=== PATIENT | male | born 1955 | race Native Hawaiian/Other Pacific Islander ===

== ENCOUNTER 2018-11-22 14:22 | Emergency (ER) | payer SELFPAY ==
[2018-11-22] MEDS ORDERED: Pepcid 20 MG VIAL IV ONE ×2 (14:34→15:28)
[2018-11-22] MEDS ORDERED: DUONEB 0.5-3 MG/3 ml Neb IH ONE ×2 (14:34→15:06)
[2018-11-22] MEDS ORDERED: solu-MEDROL 125 MG IV ONE (14:34)
[2018-11-22] MEDS ORDERED: Sodium Chloride 0.9% 1000 ML 1,000 ML IV STA (14:34)
[2018-11-22] MEDS ORDERED: BENADRYL 50 MG/ML IV ONE (14:34)
[2018-11-22 14:54] LABS: BASOPHIL % 0.1 % (0.0-0.4); Basophil (Absolute #) 0.01 (0-0.4); Eosinophil % 0.7 % (0.00-5.0); Eosinophil (Absolute #) 0.11 (0-0.5); Granulocyte Absolute (ANC) 11.88 (1.4-6.9); Granulocytes % 80.2 % (36.0-66.0); Hematocrit 46.6 % (42-50); Hemoglobin 15.4 gm/dl (12.5-18.0); Lymphocyte (Absolute #) 2.04 (1.0-4.6); Lymphocytes % 13.8 % (24.0-44.0); Mean Cell Volume 97.9 fl (78-100); Mean Corpuscular Hemoglobin 32.4 pg (26-32); Mean Platelet Volume 10.4 fl (6-9.5); Monocyte (Absolute #) 0.77 (0.0-1.3); Monocytes % 5.2 % (0.0-12.0); Platelet Count 258 K/mm3 (150-450); Red Blood Count 4.76 M/mm3 (4.1-5.6); Red Cell Distribution Width 13.7 % (11.5-14.0); White Blood Count 14.8 K/mm3 (4.0-10.5)
[2018-11-22] MEDS ORDERED: solu-MEDROL 125 MG ONE (15:28)
[2018-11-22] MEDS ORDERED: Sodium Chloride 0.9% 1000 ML 1,000 ML ONE (15:28)
[2018-11-22] MEDS ORDERED: BENADRYL 50 MG/ML ONE (15:28)
[2018-11-22 15:40] LABS: ALBUMIN 4.6 g/dL (3.5-5.0); ANION GAP 18.8 MEQ/L (5-15); BILIRUBIN,TOTAL 0.6 mg/dL (0.2-1.3); Calcium 9.7 mg/dL (8.4-10.2); Creatinine 1 1.4 mg/dL (0.66-1.25); Potassium 4.2 mmol/L (3.5-5.1); Total Protein 7.9 g/dL (6.3-8.2)
[2018-11-22] MEDS ORDERED: Zithromax 500 MG/ 250 ML NaCl Premix 500 MG/250 ML IVPB IV ONE ×2 (16:09→16:21)
[2018-11-22] MEDS ORDERED: ROCEPHIN 1 Gm-D5w 50 ml Bag** 1 G/50 ML IVPB IV STA (16:10)
[2018-11-22] MEDS ORDERED: ROCEPHIN 1 Gm-D5w 50 ml Bag** 1 G/50 ML IVPB IV ONE (16:21)
[2018-11-22 16:31] VITALS: O2SAT 95
--- NOTE | 2018-11-22 18:52 | ERPHSYRPT ---
- History of Present Illness Source: patient Exam Limitations: no limitations Patient Subjective Stated Complaint: Went to [employer] and used the restroom and used the soap, approximately 20 minutes later his vision got blurred, having difficulty swallowing, and itching Triage Nursing Assessment: Lungs clear, hypotensive, pulses normal, denies difficulty breathing, skin dry with red raised bumps in scattered areas, doesn' t appear to be in any distress Timing/Duration: today Cough Quality/Degree: moderate, dry cough Possible Cause: occasional episodes Modifying Factors: Improves With: nothing Associated Symptoms: cough, dizziness, lightheadedness, shortness of breath <DOTTIE LASSITER - Last Filed: 11/22/18 18:45> <ISAK RICE - Last Filed: 11/22/18 19:48> - History of Present Illness Time Seen by Provider: 11/22/18 19:08 Physician History: Pt is a 63 y/o male that presented to the ER with complains of rash all over, and itch. Pt states, had a h/o allergic reaction, and he feels like he can't breath. Pt denies chest pain or palpitations. No N/V/D or abdominal pain. No F/C/S. No dysuria, frequency and urgency. (DOTTIE LASSITER) Allergies/Adverse Reactions: No Known Drug Allergies Allergy (Verified 11/22/18 14:39) Home Medications: Allopurinol 300 mg [Zyloprim 300 mg] 300 mg PO DAILY 11/22/18 [History] Gemfibrozil 600 mg PO DAILY 11/22/18 [History] Lisinopril/Hydrochlorothiazide [Lisinopril-Hctz 20-12.5 mg Tab] 1 each PO DAILY 11/22/18 [History] Metformin HCl 500 mg [Glucophage 500 MG] 500 mg PO BIDWM 11/22/18 [History ] glipiZIDE [Glipizide] 10 mg PO BID 11/22/18 [History] - Review of Systems Constitutional: Weakness Eyes: No Symptoms Ears, Nose, & Throat: No Symptoms, Throat Swelling Respiratory: Cough Cardiac: No Chest Pain, No Edema, No Syncope Abdominal/Gastrointestinal: No Abdominal Pain, No Nausea, No Vomiting, No Diarrhea Genitourinary Symptoms: No Dysuria Musculoskeletal: No Back Pain, No Neck Pain Skin: Rash (diffuse) Neurological: No Dizziness, No Focal Weakness, No Sensory Changes <DOTTIE LASSITER - Last Filed: 11/22/18 18:45> - Past Medical History Cardiac History: High Cholesterol, Hypertension Endocrine Medical History: Diabetes Type II Male Reproductive Disorders: Testicular Cancer Other Medical History: broken collar bone - Past Surgical History Past Surgical History: Yes Gastrointestinal: Cholecystectomy Other Surgical History: diaphram - Social History Smoking Status: Never smoker Drug Use: none Patient Lives Alone: No <DOTTIE LASSITER - Last Filed: 11/22/18 18:45> - Physical Exam General Appearance: no apparent distress, alert Eye Exam: PERRL/EOMI, eyes nml inspection Ears, Nose, Throat Exam: normal ENT inspection, TMs normal, pharynx normal, moist mucous membranes Neck Exam: normal inspection, non-tender, supple, full range of motion Respiratory Exam: diminished breath sounds, wheezing Cardiovascular Exam: regular rate/rhythm, normal heart sounds Gastrointestinal/Abdomen Exam: soft, No tenderness Back Exam: normal inspection, No CVA tenderness, No vertebral tenderness Extremity Exam: normal inspection, normal range of motion Neurologic Exam: alert, oriented x 3, cooperative, normal mood/affect, sensation nml, No motor deficits Skin Exam: rash (Diffused) SpO2 Interpretation: normal SpO2: 95 O2 Delivery: Room Air <DOTTIE LASSITER - Last Filed: 11/22/18 18:45> - Nursing Vital Signs Nursing Vital Signs: Initial Vital Signs Temperature 97.7 F 11/22/18 14:23 Pulse Rate 100 H 11/22/18 14:23 Blood Pressure 88/58 11/22/18 14:23 O2 Sat by Pulse Oximetry 98 11/22/18 14:23 Pain Scale Pain Intensity 0 - Course Nursing assessment & vital signs reviewed: Yes - Radiology Exams Chest X-ray Interpretation: Interpreted by me (LENA MUNGUIA) <KARLDOTTIE - Last Filed: 11/22/18 18:45> - Course Nursing assessment & vital signs reviewed: Yes <ISAK RICE - Last Filed: 11/22/18 19:48> Ordered Tests: Active Orders 24 hr Category Date Time Status CHEST 1 VIEW (PORTABLE) Stat Exams 11/22/18 14:35 Completed CBC W DIFF Stat Lab 11/22/18 14:36 Completed CMP Stat Lab 11/22/18 14:36 Completed UA W/RFX UR CULTURE Stat Lab 11/22/18 18:27 Completed Peak Expiratory Flow Rate ONCE RT 11/22/18 15:13 Completed Respiratory Therapy Assessment DAILY RT 11/22/18 15:13 Completed Medication Summary Discontinued Medications Generic Name Dose Route Start Last Admin Trade Name Freq PRN Reason Stop Dose Admin Albuterol/Ipratropium 3 ml 11/22/18 14:34 11/22/18 15:12 Duoneb 0.5-3 Mg/3 Ml Neb IH 11/22/18 14:35 3 ml STAT ONE Administration Albuterol/Ipratropium Confirm 11/22/18 15:06 Duoneb 0.5-3 Mg/3 Ml Neb Administered 11/22/18 15:07 Dose 3 ml IH .STK-MED ONE Diphenhydramine HCl 50 mg 11/22/18 14:34 11/22/18 15:44 Benadryl 50 Mg/Ml IV 11/22/18 14:35 50 mg STAT ONE Administration Diphenhydramine HCl Confirm 11/22/18 15:28 Benadryl 50 Mg/Ml Administered 11/22/18 15:29 Dose 50 mg .ROUTE .STK-MED ONE Famotidine 20 mg 11/22/18 14:34 11/22/18 15:44 Pepcid 20 Mg Vial IV 11/22/18 14:35 20 mg STAT ONE Administration Famotidine Confirm 11/22/18 15:28 Pepcid 20 Mg Vial Administered 11/22/18 15:29 Dose 20 mg IV .STK-MED ONE Sodium Chloride 1,000 mls @ 999 mls/hr 11/22/18 14:34 11/22/18 16:51 Sodium Chloride 0.9% 1000 Ml IV 11/22/18 15:34 Infused .Q1H1M STA Infusion Sodium Chloride Confirm 11/22/18 15:28 Sodium Chloride 0.9% 1000 Ml Administered 11/22/18 15:29 Dose 1,000 mls @ ud .ROUTE .STK-MED ONE Azithromycin 500 mg in 250 mls @ 250 mls/hr 11/22/18 16:09 11/22/18 16:35 Zithromax 500 Mg/ 250 Ml Nacl Premix IV 11/22/18 17:08 250 mls/hr STAT ONE Administration Ceftriaxone Sodium/Dextrose 1 g in 50 mls @ 100 mls/hr 11/22/18 16:10 17:05 Rocephin 1 Gm-D5w 50 Ml Bag IV 11/22/18 16:39 Infused STAT STA Infusion Azithromycin Confirm 11/22/18 16:21 Zithromax 500 Mg/ 250 Ml Nacl Premix Administered 11/22/18 16:22 Dose 500 mg in 250 mls @ ud IV .STK-MED ONE Ceftriaxone Sodium/Dextrose Confirm 11/22/18 16:21 Rocephin 1 Gm-D5w 50 Ml Bag Administered 11/22/18 16:22 Dose 1 g in 50 mls @ ud IV .STK-MED ONE Methylprednisolone Sodium Succinate 125 mg 11/22/18 14:34 11/22/18 15:45 Solu-Medrol 125 Mg IV 11/22/18 14:35 125 mg STAT ONE Administration Methylprednisolone Sodium Succinate Confirm 11/22/18 15:28 Solu-Medrol 125 Mg Administered 11/22/18 15:29 Dose 125 mg .ROUTE .STK-MED ONE Lab/Rad Data: Laboratory Result Diagrams 11/22/18 14:36 11/22/18 14:36 Laboratory Results 11/22/18 11/22/18 11/22/18 Range/Units 18:27 14:36 14:36 WBC 14.8 H (4.0-10.5) K/mm3 RBC 4.76 (4.1-5.6) M/mm3 Hgb 15.4 (12.5-18.0) gm/dl Hct 46.6 (42-50) % MCV 97.9 (78-100) fl MCH 32.4 H (26-32) pg MCHC 33.0 (32-36) g/dl RDW 13.7 (11.5-14.0) % Plt Count 258 (150-450) K/mm3 MPV 10.4 H (6-9.5) fl Gran % 80.2 H (36.0-66.0) % Eos # (Auto) 0.11 (0-0.5) Absolute Lymphs (auto) 2.04 (1.0-4.6) Absolute Monos (auto) 0.77 (0.0-1.3) Lymphocytes % 13.8 L (24.0-44.0) % Monocytes % 5.2 (0.0-12.0) % Eosinophils % 0.7 (0.00-5.0) % Basophils % 0.1 (0.0-0.4) % Absolute Granulocytes 11.88 H (1.4-6.9) Basophils # 0.01 (0-0.4) Sodium 141 (137-145) mmol/L Potassium 4.2 (3.5-5.1) mmol/L Chloride 103 (98-107) mmol/L Carbon Dioxide 23 (22-30) mmol/L Anion Gap 18.8 H (5-15) MEQ/L BUN 22 H (9-20) mg/dL Creatinine 1.40 H (0.66-1.25) mg/dL Estimated GFR 54.1 ML/MIN Glucose 181 H (74-106) mg/dL Calcium 9.7 (8.4-10.2) mg/dL Total Bilirubin 0.60 (0.2-1.3) mg/dL AST 21 (17-59) U/L ALT 15 (0-50) U/L Alkaline Phosphatase 105 (38-126) U/L Serum Total Protein 7.9 (6.3-8.2) g/dL Albumin 4.6 (3.5-5.0) g/dL Urine Color YELLOW (YELLOW) Urine Appearance SLIGHTLY CLOUDY (CLEAR) Urine pH 5.0 (5-6) Ur Specific [place] 1.015 (1.005-1.025) Urine Protein NEGATIVE (Negative) Urine Ketones TRACE (NEGATIVE) Urine Blood NEGATIVE (0-5) [place]/ul Urine Nitrite NEGATIVE (NEGATIVE) Urine Bilirubin NEGATIVE (NEGATIVE) Urine Urobilinogen NEGATIVE (0-1) mg/dL Ur Leukocyte Esterase NEGATIVE (NEGATIVE) Urine WBC (Auto) 3-5 (0-5) /HPF Urine RBC (Auto) NONE (0-2) /HPF U Hyaline Cast (Auto) 11-25 (0-2) /LPF U Epithel Cells (Auto) NONE (FEW) /HPF Urine Bacteria (Auto) NONE (NEGATIVE) /HPF Urine Mucus (Auto) SLIGHT (NEGATIVE) /HPF Urine Culture Reflexed NO (NO) Urine Glucose NEGATIVE (NEGATIVE) mg/dL - Progress Progress: improved Air Movement: good Antibiotics given: Yes <DOTTIE LASSITER - Last Filed: 11/22/18 18:45> - Progress Progress: improved, re-examined Air Movement: good Blood Culture(s) Obtained: No Antibiotics given: Yes Counseled pt/family regarding: lab results, diagnosis, need for follow-up, rad results <ISAK RICE - Last Filed: 11/22/18 19:48> - Progress Progress Note: 11/22/18 18:50 Pt was seen and examined. He had rash that was diffused, and wheezing. Secondary to that pt was treated for allergic reaction w9th Solu medrol, Pepcid and benadryl. Pt had a work up that showed RLL PNA, and leukocytosis. Pt got Zithromax and Rocephin. UUA was ordered, and is pending. Pt is much improved. Pt was signed out to Dr Rice. (DOTTIE LASSITER) pt picked up from dr lassiter at change of shift after discussion of pending work and progress- pt symptoms have resolved no further rash - no swelling no difficulty swallowing - doesnot appear like any angioedema and has responded to therapy - advised pt this could return and discussed risk and benefit of steroid dosepak and that it requires monitoring of his diabetes and may make worse - he wishes to proceed - but declines admit for further obs and has the capacity to make that choice as well. he states he has had the lung mass for years as well as elevated right diaphrgm and it was related to his testicular cancer and is stable , but agrees to f/u PCP to recheck , he reports no resp symptoms or fever and declines ab - he was advised it still could be infection/pneumonia with his CXR and with his elevated wbc. and risk of deterioration but declines further w/u in house or admit at this time and has the capcaity to make this choice. 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 follow your blood sugar closely with your Dr. as the steroids may throw it off and your blood pressure as well. Return meantime if symptoms recur or fever, short of breath or trouble swallowing or rash - see your dr to work up your allergy reaction. Prescriptions: Methylprednisolone Packet [Medrol Dosepack] 4 mg PO UD #30 packet
[2018-11-22 19:01] LABS: Appearance SLIGHTLY CLOUDY (CLEAR); Bilirubin NEGATIVE (NEGATIVE); Blood NEGATIVE Ery/ul (0-5); Glucose NEGATIVE (NEGATIVE); Ketones TRACE (NEGATIVE); Leukocyte Esterase NEGATIVE (NEGATIVE); Mucus SLIGHT /HPF (NEGATIVE); Nitrite NEGATIVE (NEGATIVE); Protein,Urine Dip NEGATIVE (Negative); Specific Gravity 1.015 (1.005-1.025); Urobilinogen NEGATIVE mg/dL (0-1)
--- NOTE | 2018-11-22 19:27 | XRAY ---
Indication: Short of breath. Comparison: None Portable chest demonstrates right perihilar opacity with surgical clips either mass or lymphadenopathy with also right lung volume loss. Remaining lungs clear with incidental lingula calcified granuloma. Heart is not enlarged. Bony thorax intact with mild osteopenia and degenerative changes. Impression: Right perihilar opacity with surgical clips and right lung volume loss. Further clinical history and comparison studies would be of benefit. If not available, CT chest with contrast may yield further information.
[2018-11-22 20:17] VITALS: BP 121/57; PULSE 93
== END 2018-11-22 20:24 | disposition home or self-care (01) ==
LOC: ED 14:22
DX: H53.8 Other visual disturbances (principal); R13.10 Dysphagia, unspecified; T78.40XA Allergy, unspecified, initial encounter; R91.8 Other nonspecific abnormal finding of lung field; D72.829 Elevated white blood cell count, unspecified; Z85.47 Personal history of malignant neoplasm of testis
CPT/HCPCS: 36415; 71045; 80053; 81001; 85025; 94150; 94640; 96360; 96365; 96368; 96374; 96375; 99284; J0456; J0696; J1200; J2930; A9270-GY